=== PATIENT | female | born 2000 | race Asian ===

== ENCOUNTER 2022-05-05 19:41 | Inpatient (IN) ==
[2022-05-05 22:03] LABS: Urine Benzodiazepine Screen None Detected (None Detect); Urine Cannabinoids Screen None Detected (None Detect); Urine Opiates Screen None Detected (None Detect)
[2022-05-05] MEDS: CMC:FluvoxaMINE 50 mg TAB (NF) PO SCH (23:27)
[2022-05-06] MEDS ORDERED: Al Hydrox/Mg Hydrox/Simet LIQ 30 ML UDC PO PRN (00:58)
[2022-05-06] MEDS: Vitamin THERAPEUTIC TAB PO SCH (07:51)
[2022-05-06 08:15] LABS: ABS Eosinophils 0.2 10^3/ul (0-0.6); ABS Lymphocytes 3.4 10^3/ul (1.0-4.8); ABS Monocytes 0.4 10^3/ul (0-0.8); ABS Neutrophils 4.9 10^3/ul (1.5-7.7); Eosinophil % 1.9 %; Hematocrit 42 % (35-47); Hemoglobin 13.6 g/dL (12.0-16.0); Lymphocyte % 38.5 %; Mean Corpuscular HGB Conc 33 g/dL (31-36); Mean Corpuscular Hemoglobin 30 pg (27-31); Mean Corpuscular Volume 91 fL (80-97); Mean Platelet Volume 9.5 fL (7.4-10.4); Nucleated Red Blood Cells % 0.1; Platelet Count 270 10^3/uL (150-450); Red Blood Count 4.59 10^6 /uL (3.70-4.87); Red Cell Distribution Width 13 % (10-15); White Blood Count 8.9 10^3/uL (3.5-10.8)
[2022-05-06 08:25] LABS: HDL Cholesterol 61.7 mg/dL
[2022-05-06 08:34] LABS: HCG Pregnancy 0.63 mIU/mL
[2022-05-06 08:42] LABS: TSH Ultra Thyroid Stim Horm 5.91 mcIU/mL (0.34-5.60)
[2022-05-06] MEDS: CMC:FluvoxaMINE 50 mg TAB (NF) PO SCH (20:00)
[2022-05-07 08:02] LABS: Albumin 4.3 g/dL (3.2-5.2); Albumin/Globulin Ratio 1.5 (1-3); Calcium 9.5 mg/dL (8.6-10.3); Globulin 2.8 g/dL (2-4); Potassium 4.3 mmol/L (3.5-5.0); Total Bilirubin 0.7 mg/dL (0.2-1.0); Total Protein 7.1 g/dL (6.4-8.9)
[2022-05-07] MEDS: Vitamin THERAPEUTIC TAB PO SCH (08:53)
[2022-05-07] MEDS ORDERED: CMCS: FluvoxaMINE 50 mg TAB (NF) PO SCH (21:00)
[2022-05-08 07:39] VITALS: BP 115/69
[2022-05-08] MEDS: Vitamin THERAPEUTIC TAB PO SCH (09:48)
== END 2022-05-08 12:26 | disposition home or self-care (01) | DRG 885 ==
LOC: ED 19:41 → BSU 23:34
PROVIDERS: ADMIT Psychiatry & Neurology Addiction Psychiatry; ATTEND Psychiatry & Neurology Addiction Psychiatry